=== PATIENT | male | born 1975 | race Caucasian/White ===

== ENCOUNTER 2019-10-28 12:59 | Observation (INO) | payer BC, SELFPAY ==
[2019-10-28] VITALS (11 sets, daily range): BP systolic 90–168; BP diastolic 48–97; PULSE 68–132; RESP 16–185; TEMP 36.7–37; O2SAT 97–100; BMI 21.3
--- NOTE | ~2019-10-28 | XR_ITS ---
EXAMINATION: XR chest 1V portable DATE: 10/28/2019 18:18 INDICATION: Hypotension, tachycardia and elevated lactic acid TECHNIQUE: frontal and lateral views of the chest were obtained. COMPARISON: None FINDINGS: The lungs are clear with no focal airspace opacities, pulmonary edema, pleural effusion or pneumothor ax. The cardiomediastinal silhouette is normal. Visualized bones and soft tissues are unremarkable. IMPRESSION: 1. Normal chest radiograph. Reviewed, dictated and finalized at location A. OLOGY SUPERVISOR IMPRESSION: 1. Normal chest radiograph.
--- NOTE | 2019-10-28 13:35 | ECG_ITS ---
Measurements Intervals [place] Rate: 118 P: 79 WY: 154 QRS: 79 QRSD: 86 T: 65 QT: 304 QTc: 426 Interpretive Statements SINUS TACHYCARDIA DELAYED PRECORDIAL R/S TRANSITION MINIMAL Q WAVES- INF/LAT LEADS BASELINE WANDER- V1 ABNORMAL ECG Electronically Signed On 10-28-2019 17:21:57 PALLIATIVE SENIOR NP by Yung Champagne D.O.
[2019-10-28] MEDS: SODIUM CHLORIDE 0.9% IV 1,000 ML 999 ML IV CONT ×4 (13:40→16:24)
[2019-10-28 13:46] LABS: Basophils Absolute Auto 0.03 K/mm3 (0.00-0.10); Basophils Percent Auto 0.3 % (0.0-1.0); Hematocrit 50.1 % (40.0-54.0); Hemoglobin 17.4 g/dL (14.0-18.0); Immature Granulocyte Absolute 0.03 K/mm3 (0.00-0.00); Immature Granulocyte Percent A 0.3 % (0.0-0.0); Lymphocytes Absolute Auto 0.69 K/mm3 (1.10-4.50); Lymphocytes Percent Auto 7.5 % (18.0-42.0); Mean Corpuscular HGB Conc 34.7 g/dL (32.0-36.0); Mean Corpuscular Hemoglobin 34.7 pg (27.0-31.0); Mean Corpuscular Volume 99.8 fL (78.0-102.0); Monocytes Absolute Auto 0.58 K/mm3 (0.10-0.90); Monocytes Percent Auto 6.3 % (2.0-11.0); Neutrophils Absolute Auto 7.9 K/mm3 (1.7-7.2); Neutrophils Percent Auto 85.6 % (50.0-70.0); Platelet Count Result 160 K/mm3 (150-420); Red Blood Count 5.02 M/mm3 (4.70-6.10); Red Cell Distribution Width 12.2 % (11.6-14.4); White Blood Count 9.2 K/mm3 (4.8-10.8)
--- NOTE | 2019-10-28 13:59 | ED.GENADULT ---
HPI - General Adult General Chief complaint: Arrhythmia/Palpitations Stated complaint: Racing heart Source: patient Mode of arrival: ambulatory Limitations: no limitations History of Present Illness HPI narrative: 44 y.o. alcoholic c/o heart racing and palpitations since 4 AM. Sniffed 3 small lines of cocaine at midnight. Drinks 1 pint of vodka daily for the last 2 - 3 years. Symptoms feel somewhat like alcohol withdrawal. He last drank around 5 PM yesterday. Denies sweating, chest pain, SOB . Has a mild tremor, anxiety and irritability. Associated symptoms: headaches (#4/10 right temporal, onset at 4 AM. ) Treatments prior to arrival: none Related Data Home Medications Medication Instructions Recorded Confirmed No Home Medications 10/28/19 10/28/19 Allergies Allergy/AdvReac Type Severity Reaction Status Date / Time No Known Allergies Allergy Verified 10/28/19 13:30 Review of Systems Constitutional: Constitutional: Reports no additional constitutional complaints, Reports chills, Reports fatigue and Denies fever(s) ENT: Denies vertigo Cardiovascular: Cardiovascular: Denies chest pain Respiratory: Respiratory: Denies cough, Denies dyspnea and Denies wheezing Gastrointestinal: Gastrointestinal: Denies abdominal pain, Denies diarrhea and Denies nausea Genitourinary: Genitourinary: Denies dysuria and Denies penile discharge Musculoskeletal: Musculoskeletal: Denies back pain, Denies myalgias and Denies joint swelling Integumentary/Breasts: Skin/Breast: Denies rash Neurologic: Denies confusion, Reports headache(s) (left temporal headache since 4 AM, costant) and Reports tremor(s) (intention, onset today. ) Psychiatric: Psychiatric: Reports anxiety and Reports other (denies hallucinations) FORMERLY [facility], [facility] Past Medical History Medical History Alcohol abuse Family History Family History (Updated 10/28/19 @ 19:58 by Clara Zaragoza RN) Father COPD (chronic obstructive pulmonary disease) Mother Diabetes mellitus Hypertension Social History Social History (Updated 10/28/19 @ 14:48 by Tomas Leon MD) Smoking packs per day: 0.05 Smoking cigarettes per day: 1.0 Years smoked: 15 Smoking pack-years: 0.75 Smoking status: Current every day smoker Tobacco type: cigarettes Second hand tobacco smoke exposure: Yes Alcohol intake: current Drinks per week: 28 Substance use: current Substance use type: crack/cocaine Last use: 10/28/2019 Gender identity (if verbalized by the patient): Male Spiritual care concerns: No Agree to blood products: Yes Exam Const: General: no acute distress Orientation/consciousness: patient oriented x3 HENMT: Head: normal to inspection Face and sinus: no sinus tenderness Mouth: Yes dry mucous membranes Eyes: Conjunctivae: conjunctivae normal Neck: Neck: no lymphadenopathy Resp: Auscultation: clear to auscultation bilaterally Cardio: Rhythm: regular rhythm and regular rhythm Other: 2+ radial pulses GI: GI Palp: Yes Soft to palpation and Yes Tenderness to palpation present (GI) Skin: General skin exam: normal color Other: No arm track guerrero Neuro: General: patient oriented x3 Cranial nerves: Yes CN's II-XII intact bilaterally Cognition (Neuro): normal cognition Speech: normal speech Gait exam (Neuro): Normal gait present Motor exam (neuro): Other motor observations present (minor intention hand tremor. ) Extrem: General: no edema Course Course Emergency Course: After 4 liters of IVF symptoms of lightheadeness with sitting up improved but continued to have orthostatic tachycardia which diminished after 1 mg of lorazepam. Pt. symptoms a combination of dehydration and alcohol withdrawal and autonomic instability. Lorazepam 1 mg IV reducted orthostatic tachycardia. Will admit for continued IVF but also regular doses of Ativan. Monitor positional tachycardia. Vital Signs Vital signs: Vital Signs Temp
[2019-10-28 14:05] LABS: Alanine Aminotransferase 24 U/L (16-63); Albumin Level 4.2 g/dL (3.4-5.0); Alkaline Phosphatase 89 U/L (46-116); Anion Gap 19.6 mmol/L (7-16); Aspartate Amino Transferase 37 U/L (15-37); Blood Urea Nitrogen 12 mg/dL (7-18); Calcium 8.5 mg/dL (8.5-10.1); Carbon Dioxide 22 mmol/L (21-32); Chloride 99 mmol/L (98-108); Estimated CRCL calculation 88 ml/min; Estimated Glomerular Filt Rate > 60; Glucose 117 mg/dL (70-99); Osmolality Calculated 284 mOsm/kg (285-295); Potassium 3.6 mmol/L (3.5-5.1); Sodium 137 mmol/L (136-145); Total Protein 8.1 g/dL (6.4-8.2)
--- NOTE | 2019-10-28 14:05 | PC.NURSE ---
Pt unable to provide urine sample at this time.
[2019-10-28 14:07] LABS: Troponin I < 0.02 ng/mL (0.00-0.056)
[2019-10-28 14:13] LABS: Thyroid Stimulating Hormone 1.01 uIU/mL (0.36-3.74)
--- NOTE | 2019-10-28 14:45 | PC.NURSE ---
Pt standing to urinate in urinal on side of bed. HR elevated to 150. Pt able to provide urine sample, bp checked while standing with reading of 162/96, laying prior was 153/99. Pt layed back on bed and hr slowly went back down to 80. Pt flushed, states he just doesn't feel good. Stevens light given, no requests at this time.
[2019-10-28 14:59] LABS: Amphetamine Screen Urine Positive (Negative); Barbiturate Screen Urine Negative (Negative); Benzodiazepines Screen Urine Negative (Negative); Cannabinoid Screen Urine Negative (Negative); Cocaine Screen Urine Negative (Negative); Methadone Screen Urine Negative (Negative); Opiate Screen Urine Negative (Negative); Phencyclidine Screen Urine Negative (Negative)
[2019-10-28 15:03] LABS: Folic Acid 19.3 ng/mL (8.6->20)
--- NOTE | 2019-10-28 15:33 | PC.NURSE ---
Pt standing to use urinal at bedside. pt heart rate increased to 150. Upon laying down pt heart rate decreased to 68
[2019-10-28 18:14] LABS: Appearance Urine Cloudy (Clear); Blood Urine 1+ (Negative); Color Urine Yellow (Yellow); Glucose Urine UA Negative (Negative); Ketones Urine 2+ (Negative); Protein Urine Trace (Negative); Specific Grav Ur 1.025 (1.010-1.020)
[2019-10-28 18:15] LABS: Add Urine Microscopic? YES; Bilirubin Urine 1+ (Negative); Leukocyte Esterase Ur Negative (Negative); Nitrate Urine Negative (Negative); RBC Urine 0-2 /hpf (0-2); Urobilinogen Urine 0.2 mg/dL (0.2-1.0); WBC Urine 0-3 /hpf (0-3)
[2019-10-28 18:16] LABS: Squamous Epithelial Cell Urine Few /hpf (Few)
[2019-10-28 18:35] LABS: HCO3 ABG 21.8 mmol/L (23-29); PCO2 ABG 35.7 mmHg (35-45); PO2 ABG 108.1 mmHg (80-90)
[2019-10-28 18:35] LABS: Vitamin B12 454 pg/mL (193-986)
[2019-10-28 18:36] LABS: Modified Allen's Test Pass; Oxygen Saturation ABG 97.5 % (95-97); Site Drawn LEFT BRACHIAL; Total Hemoglobin 16.2 g/dL
[2019-10-28] MEDS: LORAZEPAM INJ 2 MG/ML VIAL 1 MG IV PUSH ×2 (19:08→23:47)
[2019-10-28] MEDS: ACETAMINOPHEN 500 MG TABLET 1000 MG PO (19:10)
--- NOTE | 2019-10-28 19:28 | PC.NURSE ---
Pt up standing on side of bed with this RN. Pt states he fells better upon standing than earlier, heart rate elevated to 110.
--- NOTE | 2019-10-28 19:45 | ADMGEN ---
This patient, Jeremy Lux, was admitted to 2nd Floor Room 210-2. Patient/family oriented to hospital policies and general routines including ID bracelet, bed and alarms, visiting hours, pain management, procedures, bathroom and other care routines, personal items, smoking policy, room service/diet, and visiting hours. Information on how to activate the Rapid Response Team has been discussed. Patient/Family are encouraged to report perceived risks to care and to ask questions if they do not understand what they are told or what they should do.
--- NOTE | 2019-10-28 20:00 | PC.NURSE ---
CIWA-AR assessment used pt score of 1 at this time. pt denies any needs at this time, denies any pain or dizziness, ice water and snacks given, heart rate of 68.
[2019-10-28] MEDS: SODIUM CHLORIDE 0.9% IV 1,000 ML 200 ML IV CONT (20:18)
--- NOTE | 2019-10-28 21:10 | PC.NURSE ---
pt resting in bed, eating snacks and visiting with friend, iv fluids infusing per order, denies any dizziness or palpitations, call light within reach
--- NOTE | 2019-10-28 22:17 | PC.NURSE ---
pt resting in bed, friend left for the evening, denies any dizziness or palpitations, heart rate 64, belongings and call light within reach.
[2019-10-28 23:03] LABS: Lactic Acid 3.3 mmol/L (0.4-2.0)
--- NOTE | 2019-10-28 23:05 | PC.NURSE ---
pt sleeping respirations even and regular, no evidence of distress noted, iv infusing per orders.
--- NOTE | 2019-10-29 | PC.NURSE ---
Addendum entered by Clara Zaragoza RN 10/29/19 00:13: LUCYWA-AR score of 0 Original Note: pt resting in bed, vital signs obtained heart rate 76, iv fluids infusing per order, denies any dizziness or pain
[2019-10-29] MEDS: SODIUM CHLORIDE 0.9% IV 1,000 ML 200 ML IV CONT ×2 (01:30→06:24)
--- NOTE | 2019-10-29 01:39 | PC.NURSE ---
pt resting in bed, iv fluids infusing per order, denies any dizziness or palpitations at this time
--- NOTE | 2019-10-29 02:11 | PC.NURSE ---
pt sleeping, respirations even and regular, no evidence of distress noted, iv fluids infusing per order
--- NOTE | 2019-10-29 03:27 | PC.NURSE ---
pt sleeping, no evidence of distress noted
[2019-10-29 03:48] VITALS: BP 122/82; PULSE 51; RESP 18; TEMP 36.6; O2SAT 98
--- NOTE | 2019-10-29 03:50 | PC.NURSE ---
pt resting in bed, CIWA-AR score is 0 at this time, denies any dizziness reports a couple palpitations felt occasionally
--- NOTE | 2019-10-29 04:27 | PC.NURSE ---
pt resting in bed watching tv, iv fluids infusing per order, denies any palpitations or dizziness at this time
[2019-10-29] MEDS: LORAZEPAM INJ 2 MG/ML VIAL 1 MG IV PUSH (05:38)
[2019-10-29 05:42] LABS: Anion Gap 10.5 mmol/L (7-16); Blood Urea Nitrogen 10 mg/dL (7-18); Calcium 7.8 mg/dL (8.5-10.1); Carbon Dioxide 27 mmol/L (21-32); Chloride 104 mmol/L (98-108); Estimated CRCL calculation 91 ml/min; Estimated Glomerular Filt Rate > 60; Glucose 92 mg/dL (70-99); Osmolality Calculated 285 mOsm/kg (285-295); Potassium 3.5 mmol/L (3.5-5.1); Sodium 138 mmol/L (136-145)
[2019-10-29 07:40] VITALS: BP 120/73; PULSE 79
[2019-10-29 07:41] VITALS: BP 117/77; PULSE 90
[2019-10-29 07:42] VITALS: BP 102/65; PULSE 108
[2019-10-29 07:45] VITALS: BP 120/73; PULSE 79; RESP 18; TEMP 36.6; O2SAT 100
--- NOTE | 2019-10-29 07:49 | PC.NURSE ---
Minimal dizzyness with standing, states is normal for patient, orthostatic vitals completed and documented, fluids infusing, no headache, CIWA-Ar scale 0, up at bedside, no n/v,
--- NOTE | 2019-10-29 08:00 | PC.NURSE ---
Up in room gait steady CIWA-Ar 0 fluids infusing
[2019-10-29] MEDS: ENOXAPARIN 40 MG/0.4 ML SYRINGE SUB-Q (08:58)
--- NOTE | 2019-10-29 09:00 | PC.NURSE ---
Up in room independent, family at the bedside, ate well for breakfast, fluids infusing, CIWA-Ar 0
--- NOTE | 2019-10-29 10:01 | PC.NURSE ---
Resting in bed, denies needs, feeling better, fluids infusing CIWA-Ar 0
--- NOTE | 2019-10-29 10:59 | PC.NURSE ---
No complaints, telemetry SR at this time, fluids infusing
--- NOTE | 2019-10-29 11:30 | PM.IMHP ---
H&P: HPI History of Present Illness Chief complaint: Racing heart Narrative: Jeremy Lux is a 44 year old male PRESENTED TO ED YESTERDAY CHIEF COMPLAINT PALPITATION WITH HEART RACING. ACCORDING TO PATIENT HE HAD CONSUMED ALCOHOL, AND SNIFFED THE SMALL LINES COCAINE OVERNIGHT AND STARTED EXPERIENCE PALPITATION WITH HIS HEART RACING. HE DOES HAVE A HISTORY OF ALCOHOL ABUSE. HE DRINKS 1 PT VODKA DAILY. HE IS ANXIOUS TO GO IN NOTED THAT THE ATIVAN THAT WE ARE GIVING HIM HAS CALMED HIM DOWN. I WOULD DISCHARGE HIM WITH A SMALL DOSE OF ATIVAN AND INSTRUCT HIM TO FOLLOW WITH HIS PCP FOR REFILLS. PATIENT ABLE TO TOLERATE ALL MEALS , SLEPT WELL AND AMBULATE AT BASELINE. PATIENT DENIES SOB, CP, PALPITATION, EXTREMITY NUMBNESS, LIGHTHEADNESS, DIZZINESS, CONSTIPATION, DIARRHEA, OR CHILLS OR FEVER. PATIENT AGREE THAT THEY ARE READY FOR DISCHARGE AND DISCHARGE PLAN. Review of Systems Constitutional: Constitutional: Denies chills, Denies headache(s), Denies lethargy and Denies weakness Cardiovascular: Cardiovascular: Denies chest pain at rest, Denies chest pain with activity, Denies rapid heart rate, Denies leg edema, Denies lightheadedness, Denies palpitations and Denies dyspnea Respiratory: Respiratory: Reports no additional respiratory complaints, Denies chest congestion, Denies cough and Denies dyspnea Gastrointestinal: Gastrointestinal: Reports no additional gastrointestinal complaints, Denies abdominal pain, Denies diarrhea, Denies nausea, Denies vomiting and Denies hematemesis Musculoskeletal: Musculoskeletal: Reports no additional musculoskeletal complaints Integumentary/Breasts: Skin/Breast: Reports system reviewed and no additional complaints, except as docu Psychiatric: Psychiatric: Reports no additional psychiatric complaints, Denies anxiety, Denies confusion, Denies hopelessness and Denies irritability [facility] Past Medical History Medical History Alcohol abuse Family History Family History (Updated 10/28/19 @ 19:58 by Clara Zaragoza RN) Father COPD (chronic obstructive pulmonary disease) Mother Diabetes mellitus Hypertension Social History Social History (Updated 10/28/19 @ 14:48 by Tomas Leon MD) Smoking packs per day: 0.05 Smoking cigarettes per day: 1.0 Years smoked: 15 Smoking pack-years: 0.75 Smoking status: Current every day smoker Tobacco type: cigarettes Second hand tobacco smoke exposure: Yes Alcohol intake: current Drinks per week: 28 Substance use: current Substance use type: crack/cocaine Last use: 10/28/2019 Gender identity (if verbalized by the patient): Male Spiritual care concerns: No Agree to blood products: Yes Meds Home Medications and Allergies Home Medications Medication Instructions Recorded Confirmed Type No Home Medications 10/28/19 10/28/19 History lorazepam [Ativan] 1 mg PO BID PRN #30 tablet 10/29/19 Rx Allergies Allergy/AdvReac Type Severity Reaction Status Date / Time No Known Allergies Allergy Verified 10/28/19 13:30 Vital Signs Vital Signs - 24 hr 10/28/19 13:15 10/28/19 14:05 10/28/19 15:34 Temperature 36.9 C Pulse Rate 128 H 82 68 Respiratory Rate 20 16 18 Blood Pressure 142/89 H 161/97 H 143/91 H Pulse Oximetry 97 100 99 10/28/19 16:13 10/28/19 16:15 10/28/19 17:30 Temperature Pulse Rate 77 132 H 72 Respiratory Rate 185 H Blood Pressure 155/91 H 97/57 L 168/92 H Pulse Oximetry 100 10/28/19 17:35 10/28/19 18:48 10/28/19 19:40 Temperature Pulse Rate 128 H 83 72 Respiratory Rate 16 16 Blood Pressure 90/48 L 117/69 Pulse Oximetry 98 98 10/28/19 19:50 10/28/19 23:57 10/29/19 03:48 Temperature 37.0 C 36.7 C 36.6 C Pulse Rate 68 76 51 L Respiratory Rate 18 18 18 Blood Pressure 137/78 120/60 122/82 Pulse Oximetry 97 98 98 10/29/19 07:40 10/29/19 07:41 10/29/19 07:42 Temperature Pulse Rate 79 90 108 H Respiratory Rate Blood Pressure 120/73 117/77 102
--- NOTE | 2019-10-29 11:35 | PC.NURSE ---
Patient stated I would like to find my own PCP. I do not want you to find one for me.
--- NOTE | 2019-10-29 11:45 | PM.DS ---
DS: Diagnosis Discharge Diagnosis (1) Acute dehydration: Code(s): E86.0 - Dehydration Status: Acute Assessment and Plan: STABLE SECONDARY TO ETOH ABUSE AND ILLEGAL DRUG USE -PATIENT HYDRATED WITH NORMAL SALINE - PATIENT AGREES TO DRINK PLENTY OF FLUIDS TO REMAIN HYDRATED AND REFRAME FROM USE ALCOHOL AND ILLEGAL DRUGS (2) Alcohol withdrawal: Qualifiers: Complication of substance-induced condition: with unspecified complication Qualified Code(s): F10.239 - Alcohol dependence with withdrawal, unspecified Code(s): F10.239 - Alcohol dependence with withdrawal, unspecified Status: Acute Assessment and Plan: -PATIENT EDUCATED ON REFRAINING FROM ALCOHOL USE - PATIENT GIVEN INFORMATION BY SOCIAL WORKERS ON SUBSTANCE ABUSE PROGRAMS. - PATIENT WILL DISCHARGE AND ATIVAN AND FOLLOW-UP WITH PCP FOR REFILL. (3) Alcohol abuse: Code(s): F10.10 - Alcohol abuse, uncomplicated Status: Acute Assessment and Plan: -PATIENT EDUCATED ON REFRAINING FROM ALCOHOL USE - PATIENT GIVEN INFORMATION BY SOCIAL WORKERS ON SUBSTANCE ABUSE PROGRAMS (4) Heart palpitations: Code(s): R00.2 - Palpitations Status: Acute Assessment and Plan: SECONDARY TO COCAINE USE - PATIENT HEART RATE ON ADMISSION HIGH 132 CURRENTLY IN THE UPPER 70'S - PATIENT DENIES ANY CHEST PAINS, PALPITATIONS AT THIS. - WILL DISCHARGE PATIENT HOME WITH A SMALL DOSE OF ATIVAN AND INSTRUCTED TO FOLLOW-UP WITH PCP (5) Substance abuse: Code(s): F19.10 - Other psychoactive substance abuse, uncomplicated Status: Acute Assessment and Plan: -PATIENT EDUCATED ON REFRAINING FROM ALCOHOL USE - PATIENT GIVEN INFORMATION BY SOCIAL WORKERS ON SUBSTANCE ABUSE PROGRAMS DS: Summary Hospital Course Hospital Course: Narrative: Jeremy Lux is a 44 year old male PRESENTED TO ED YESTERDAY CHIEF COMPLAINT PALPITATION WITH HEART RACING. ACCORDING TO PATIENT HE HAD CONSUMED ALCOHOL, AND SNIFFED THE SMALL LINES COCAINE OVERNIGHT AND STARTED EXPERIENCE PALPITATION WITH HIS HEART RACING. HE DOES HAVE A HISTORY OF ALCOHOL ABUSE. HE DRINKS 1 PT VODKA DAILY. HE IS ANXIOUS TO GO IN NOTED THAT THE ATIVAN THAT WE ARE GIVING HIM HAS CALMED HIM DOWN. I WOULD DISCHARGE HIM WITH A SMALL DOSE OF ATIVAN AND INSTRUCT HIM TO FOLLOW WITH HIS PCP FOR REFILLS. PATIENT ABLE TO TOLERATE ALL MEALS , SLEPT WELL AND AMBULATE AT BASELINE. PATIENT DENIES SOB, CP, PALPITATION, EXTREMITY NUMBNESS, LIGHTHEADNESS, DIZZINESS, CONSTIPATION, DIARRHEA, OR CHILLS OR FEVER. PATIENT AGREE THAT THEY ARE READY FOR DISCHARGE AND DISCHARGE PLAN. Time Spent with Patient Time attestation: Total time spent providing and/or coordinating discharge services: Exam Const: General: cooperative, comfortable and no acute distress; No confusion Orientation/consciousness: patient oriented x3 and No confusion Chest: Chest palpation & inspection: normal inspection of the chest Cardio: Jugular venous distension: no JVD Rate: regular rate Rhythm: regular rhythm GI: Inspection: normal to inspection Neuro: General: patient oriented x3, gait normal, moves all extremities and No confusion Speech: normal speech Gait exam (Neuro): Normal gait present DS: Data Data Completed and Pending Labs on day of discharge: Labs from last 24 hours 10/29/19 10/28/19 10/28/19 05:14 22:34 18:02 WBC RBC Hgb Hct MCV MCH MCHC RDW Plt Count MPV Immature Gran % (Auto) Neut % (Auto) Lymph % (Auto) [place] % (Auto) Eos % (Auto) Baso % (Auto) Lymph # (Auto) [place] # (Auto) Eos # (Auto) Baso # (Auto) Abs Immat Gran (auto) Absolute Neuts (auto) Absolute Nucleated RBC Nucleated RBC % Puncture Site ABG pH ABG pCO2 ABG pO2 ABG PO2/FiO2 Ratio ABG HCO3 ABG O2 Saturation ABG O2 Content ABG Base Excess A-a Gradient Oxyhemoglobin Total Hemoglobin
[2019-10-29] MEDS: LORAZEPAM 1 MG TABLET PO (11:54)
--- NOTE | 2019-10-29 12:00 | PCDIET ---
discharge to home, CIWA-Ar 0, denies dizzyness, no tremors noted, saline lock removed, no questions regarding discharge instructions
--- NOTE | 2019-11-05 14:28 | PC.NURSE ---
Discharge Call Back [phone] unable to reach patient . message left.
== END 2019-10-29 12:00 | disposition home or self-care (01) ==
LOC: CHSED 13:12 → CHS2ND 19:22
PROVIDERS: Admitting Provider Family Medicine; Emergency Provider Family Medicine; Visit Provider Family Medicine
DX: E86.0 Dehydration (principal); R00.2 Palpitations; F10.10 Alcohol abuse, uncomplicated; F14.90 Cocaine use, unspecified, uncomplicated; J44.9 Chronic obstructive pulmonary disease, unspecified; E11.9 Type 2 diabetes mellitus without complications; I10 Essential (primary) hypertension; R51 Headache; F17.210 Nicotine dependence, cigarettes, uncomplicated
CPT/HCPCS: 36415; 36600; 71045; 80048; 80053; 80307; 81001; 82607; 82746; 82805; 83605; 84443; 84484; 85025; 93005; 96361; 96372; 96374; 96376; 99285; A9270; G0378; J1650; J2060; J7030